=== PATIENT | female | born 1980 | race Caucasian/White ===

== ENCOUNTER → 2017-05-07 | Outpatient (CLI) | payer MEDICAID ==
[~2017-05-07] MED LIST: AMOXIL500 M1 PO; BACTRIM DS 8001 TAB PO; FLEXERIL10 MG PO; KEFLEX 500MG.500 MG PO; LORTAB 5/500 501 TAB PO; NAPROSYN 500MG500 MG PO; NORCO 325 MG-51 TAB PO; PREDNISONE50 MG PO; ULTRAM 50 MG TA50 MG PO; VICODIN 5/500 T1 TAB PO; VOLTAREN75 MG PO; ZOFRAN ODT8 MG PO
[2017-05-07 16:58] LABS: AMPHETAMINES/METAMPHETAMINES NEGATIVE ng/mL (<1000)
[2017-05-07 17:03] LABS: LYMPH # 1.9 K/mm3 (0.7-4.5); LYMPH % 20.2 % (10-50.0)
[2017-05-07 17:12] LABS: HEMOGLOBIN 14.9 g/dL (12.2-16.2)
[2017-05-07 17:48] LABS: BUN 19 mg/dL (7-18)
[2017-05-07 17:52] LABS: GFR (ESTIMATED) 95 ML/MIN (59-)
[2017-05-09 12:39] LABS: HBsAg Screen Negative (Negative); Hep A Ab, IgM Negative (Negative); Hep B Core Ab, IgM Negative (Negative); Hep C Virus Ab <0.1 (0.0-0.9)
[2017-05-10 08:36] LABS: Vitamin D, 25-Hydroxy 33.8 ng/mL (30.0-100.0)
== END ==
LOC: LAB 15:24
PROVIDERS: Emergency Medicine
DX: Z79.899 Other long term (current) drug therapy (principal); R53.83 Other fatigue